=== PATIENT | male | born 1960 | race Caucasian/White ===

== ENCOUNTER 2016-08-14 09:47 | Day surgery (SDC) | payer MEDICARE, MEDICAID ==
[2016-08-13 11:52] LABS: ABSOLUTE BASOPHILS # (AUTO) 0.1 10^3/uL (0.0-0.2); ABSOLUTE EOSINOPHILS # (AUTO) 0.2 10^3/uL (0.0-0.6); ABSOLUTE LYMPHOCYTES (AUTO) 2.3 10^3/uL (0.5-4.7); ABSOLUTE MONOCYTES (AUTO) 0.9 10^3/uL (0.1-1.4); BASOPHILS % (AUTO) 0.6 % (0-2); EOSINOPHILS % (AUTO) 2.6 % (0-6); HEMATOCRIT 42.3 % (37.9-51.0); HEMOGLOBIN 14.5 g/dL (13.5-17.0); HGB HCT DIFFERENCE 1.2; LYMPHOCYTES % (AUTO) 26.9 % (13-45); MEAN CORPUSCULAR HGB CONC 34.3 g/dL (32.0-36.0); MEAN CORPUSCULAR VOLUME 87 fl (80-97); MONOCYTES % (AUTO) 10.2 % (3-13); RED BLOOD COUNT 4.84 10^6/uL (4.35-5.55); RED CELL DISTRIBUTION WIDTH 14.6 % (11.5-14.0); SEGMENTED NEUTROPHILS % (AUTO) 59.7 % (42-78); WHITE BLOOD COUNT 8.4 10^3/uL (4.0-10.5)
[2016-08-13 12:11] LABS: ANION GAP 11 (5-19); BLOOD UREA NITROGEN 8 mg/dL (7-20); CARBON DIOXIDE 28 mmol/L (22-30); CHLORIDE 102 mmol/L (98-107); CREATININE RESULT 0.96 mg/dL (0.52-1.25); GLUCOSE 84 mg/dL (75-110); POTASSIUM 4.4 mmol/L (3.6-5.0); SODIUM 141.3 mmol/L (137-145)
--- NOTE | 2016-08-13 21:37 | EKG REPORT ---
SEVERITY:- NORMAL ECG - SINUS RHYTHM : Confirmed by: Dominick Shankar 13-Aug-2016 21:35:59
[~2016-08-14 09:47] MED LIST: BUPIVACAINE HCL 0.5%/EPI 1:200000 INJ 1.8 ML CARTRIDGE ONE; LACTATED RINGERS 1000 ML IV PRN; LIDOCAINE 0.5% INJ-PF (5 MG/ML) 50 ML SDV SUBCUT PRN; LIDOCAINE 2%/EPINEPHRINE INJ 1.7 ML CARTRIDGE ONE
[2016-08-14] MEDS ORDERED: PROPOFOL INJ 200 MG/20 ML VIAL IV ONE (11:38)
[2016-08-14] MEDS ORDERED: MIDAZOLAM 2 MG/2 ML INJ ONE (11:38)
[2016-08-14] MEDS ORDERED: HYDROMORPHONE HCL INJ/PF 2 MG/ML AMPULE ONE (11:38)
[2016-08-14] MEDS ORDERED: ACETAMINOPHEN 100 ML IV ONE (12:37)
[2016-08-14] MEDS ORDERED: FENTANYL CITRATE INJ/PF 100 MCG/2 ML AMPUL IV PRN ×3 (12:44)
[2016-08-14] MEDS ORDERED: DIPHENHYDRAMINE HCL 50 MG/ML VIAL IV PRN (12:44)
[2016-08-14] MEDS ORDERED: MEPERIDINE HCL/PF INJ 25 MG/1 ML DISP.SYRIN IV PRN (12:44)
[2016-08-14] MEDS ORDERED: ONDANSETRON HCL INJ/PF 4 MG/2 ML SDV IV PRN (12:44)
[2016-08-14] MEDS ORDERED: PROMETHAZINE HCL INJ 25 MG/1 ML VIAL IV PRN ×2 (12:44)
--- NOTE | 2016-08-14 13:35 | Operative Report ---
Operative Report DATE OF SURGERY: 08/14/16 PREOPERATIVE DIAGNOSIS: Dental caries, mandibular grace and maxillary and mandibular buccal exostoses POSTOPERATIVE DIAGNOSIS: Same OPERATION: Surgical removal of teeth numbers 1, 20, 21, 22, 23, 24, 25, 26 and 27, removal of mandibular grace and maxillary mandibular buccal exostoses and alveoloplasty of the lower right lower left quadrants SURGEON: ARCHANA SOLANO ANESTHESIA: GA TISSUE REMOVED OR ALTERED: Teeth and bone which were discarded COMPLICATIONS: None ESTIMATED BLOOD LOSS: 50 mL INTRAOPERATIVE FINDINGS: Grossly decayed teeth, bilateral mandibular grace, maxillary and mandibular buccal exostoses PROCEDURE: The patient was brought into operating room #3 and placed on the operating room table in supine position. General anesthesia was induced via a peripheral IV and continued utilizing nasoendotracheal intubation through the right nares. The endotracheal tube was secured in a low-profile fashion by the anesthesia department. The patient was then prepped and draped in usual fashion for an intraoral procedure. 4 carpules of 2% lidocaine with 1:100,000 epinephrine and 2 carpules of 1/2% Marcaine with 1:200,000 epinephrine were delivered to the planned surgical sites via both infiltration and nerve block. The oral cavity and oropharynx were suctioned and a moistened oropharyngeal throat pack was placed. Full-thickness mucoperiosteal flaps were then developed. The buccal exostoses were removed with rongeurs and bone files. The teeth were delivered using elevators and forceps. Alveoloplasties were completed using rongeurs and bone file. The mandibular grace were removed utilizing a small fissure bur on a rotating osteotome and mallet and chisels. After removal of the grace the mandibular bone was smoothed using bone files. All sites were irrigated with normal saline solution and the flaps were reapproximated and sutured using 4-0 chromic gut suture. A bite block was used the procedure. There was no sinus communication noted. The mandible was intact postoperatively and the nerves were not seen. The oral cavity was irrigated and suctioned, the throat pack was removed and the oropharynx suctioned. Gauze packs were placed bilaterally to aid in continued hemostasis. The patient was then awakened from general anesthesia and taken to the recovery room in spontaneous breathing fashion
[2016-08-14] MEDS ORDERED: OXYCODONE-ACETAMINOPHEN 5-325 MG TABLET PO PRN (13:48)
[2016-08-14] MEDS: FENTANYL CITRATE INJ/PF 100 MCG/2 ML AMPUL ONE ×2 (13:48→13:53)
[2016-08-14] MEDS ORDERED: GLYCOPYRROLATE INJ 0.4 MG/2 ML VIAL ONE (14:36)
[2016-08-14] MEDS ORDERED: SUCCINYLCHOLINE CHLORIDE INJ 200 MG/10 ML VIAL ONE (14:36)
[2016-08-14] MEDS ORDERED: ONDANSETRON HCL INJ/PF 4 MG/2 ML SDV ONE (14:36)
[2016-08-14] MEDS ORDERED: DEXAMETHASONE SOD PHOSPHATE INJ 4 MG/1 ML VIAL ONE (14:36)
[2016-08-14 15:39] VITALS: BP 134/78
== END 2016-08-14 15:44 | disposition home or self-care (01) ==
LOC: OROUT 09:47
PROVIDERS: ATTEND Dentist Oral and Maxillofacial Surgery
PROC: 0CDXXZ1 Extraction of Lower Tooth, Multiple, External Approach (ICD-10-PCS; 2016-08-14)
PROC: 0NQVXZZ Repair Left Mandible, External Approach (ICD-10-PCS; 2016-08-14)
PROC: 0NQTXZZ Repair Right Mandible, External Approach (ICD-10-PCS; 2016-08-14)
PROC: 0NBV0ZZ Excision of Left Mandible, Open Approach (ICD-10-PCS; 2016-08-14)
PROC: 0NBT0ZZ Excision of Right Mandible, Open Approach (ICD-10-PCS; 2016-08-14)
PROC: 0NBS0ZZ (ICD-10-PCS; 2016-08-14)
PROC: 0NBT0ZZ Excision of Right Mandible, Open Approach (ICD-10-PCS; 2016-08-14)
PROC: 0NBV0ZZ Excision of Left Mandible, Open Approach (ICD-10-PCS; 2016-08-14)
PROC: 0NBR0ZZ Excision of Maxilla, Open Approach (ICD-10-PCS; 2016-08-14)
PROC: 0CDWXZ0 Extraction of Upper Tooth, Single, External Approach (ICD-10-PCS; principal; 2016-08-14 12:00)
DX: K02.63 Dental caries on smooth surface penetrating into pulp (principal); K08.3 Retained dental root; M27.0 Developmental disorders of jaws; M27.8 Other specified diseases of jaws; J44.9 Chronic obstructive pulmonary disease, unspecified; F17.210 Nicotine dependence, cigarettes, uncomplicated; I10 Essential (primary) hypertension; Z79.899 Other long term (current) drug therapy
CPT/HCPCS: 41899; 41874 ×2; 21031 ×2; 21299; 93005; 36415; 85025; 80048; 71020; 93010; J2250; J3490; J1100; J3010; A9270; J1170; J0330; J2405; J2704; J0131; 170